=== PATIENT | female | born 1985 | race Caucasian/White ===

== ENCOUNTER → 2017-02-07 | Outpatient (CLI) | payer BC ==
[~2017-02-07] MED LIST: MTR600X PO; PRENTAB26 PO
[2017-02-07 18:33] LABS: URINE APPEARANCE CLEAR (CLEAR); URINE BILIRUBIN NEG (NEG); URINE COLOR YELLOW; URINE NITRITE NEG (NEG); URINE PH 5.5 (4.5-7.5); URINE SPECIFIC GRAVITY 1.013 (1.000-1.030); UROBILINOGEN NEG (NEG)
[2017-02-07 18:38] LABS: MANUAL MICROSCOPIC REQUIRED? NO; REVIEW REQ? NO
== END | disposition home or self-care (01) ==
LOC: C.LABSPEC 17:52
PROVIDERS: ATTEND Obstetrics & Gynecology
DX: O99.211 Obesity complicating pregnancy, first trimester (principal); Z3A.00 Weeks of gestation of pregnancy not specified

== ENCOUNTER → 2017-02-14 | Outpatient (CLI) | payer BC | END | disposition home or self-care (01) | LOC: C.PAPS 09:52 | PROVIDERS: ATTEND Obstetrics & Gynecology | DX: Z12.4 Encounter for screening for malignant neoplasm of cervix (principal) ==

== ENCOUNTER → 2017-02-14 | Outpatient (CLI) | payer BC ==
[2017-02-17 01:39] LABS: CHLAMYDIA TRACH RNA*** NOT DETECTED (NOT DETECTED); GC (NEIS GONORRHOEAE)RNA** NOT DETECTED (NOT DETECTED)
== END | disposition home or self-care (01) ==
LOC: C.LABSPEC 11:58
PROVIDERS: ATTEND Obstetrics & Gynecology
DX: O99.211 Obesity complicating pregnancy, first trimester (principal); Z3A.00 Weeks of gestation of pregnancy not specified

== ENCOUNTER → 2017-02-14 | Outpatient (CLI) | payer BC ==
[2017-02-14 14:50] LABS: BASO % 0.2 %; BASO ABS # 0.02 K/uL (0-0.2); COMPLETE YES; EOS % 0.5 %; HEMATOCRIT 41.5 % (37-47); IG% 0.2 %; LYMPH % 27.4 %; LYMPH ABS # 2.51 K/uL (1.2-3.4); MEAN CELL VOLUME 80.4 fL (80-100); MEAN CORPUSCULAR HEMOGLOBIN 26.6 pg (25-34); MEAN PLATELET VOLUME 11.6 fL (7.4-10.4); MONO % 5.1 %; NEUT % 66.6 %; PLATELET COUNT 288 K/uL (130-400); RED BLOOD COUNT 5.16 M/uL (4.2-5.4); WHITE BLOOD COUNT 9.17 K/uL (4.8-10.8)
== END | disposition home or self-care (01) ==
LOC: C.RAD1850 12:43
PROVIDERS: ATTEND Obstetrics & Gynecology
DX: O99.211 Obesity complicating pregnancy, first trimester (principal); Z3A.00 Weeks of gestation of pregnancy not specified; E66.9 Obesity, unspecified; Z12.4 Encounter for screening for malignant neoplasm of cervix

== ENCOUNTER → 2017-04-18 | Outpatient (CLI) | payer BC ==
[2017-04-18 13:14] LABS: GTGD 50 Grams
== END | disposition home or self-care (01) ==
LOC: C.LAB1850 11:15
PROVIDERS: ATTEND Obstetrics & Gynecology
DX: O99.212 Obesity complicating pregnancy, second trimester (principal); Z3A.00 Weeks of gestation of pregnancy not specified

== ENCOUNTER → 2017-06-21 | Outpatient (CLI) | payer BC ==
[2017-06-21 12:26] LABS: URINE APPEARANCE CLEAR (CLEAR); URINE BILIRUBIN NEG (NEG); URINE COLOR YELLOW; URINE NITRITE NEG (NEG); URINE PH 6.5 (4.5-7.5); URINE SPECIFIC GRAVITY 1.014 (1.000-1.030); UROBILINOGEN NEG (NEG)
[2017-06-21 12:29] LABS: MANUAL MICROSCOPIC REQUIRED? NO; REVIEW REQ? NO
== END | disposition home or self-care (01) ==
LOC: C.LAB1850 10:28
PROVIDERS: ATTEND Obstetrics & Gynecology
DX: O26.892 Other specified pregnancy related conditions, second trimester (principal)

== ENCOUNTER → 2017-07-03 | Outpatient (CLI) | payer BC ==
[2017-07-03 10:58] LABS: HEMATOCRIT 36.3 % (37-47)
[2017-07-03 11:14] LABS: GTGD 50 Grams
[2017-07-03 11:40] LABS: URINE APPEARANCE CLEAR (CLEAR); URINE BILIRUBIN NEG (NEG); URINE COLOR YELLOW; URINE EPITHELIAL CELL AUTO >30 /lpf (0-5); URINE NITRITE NEG (NEG); URINE PH 7.5 (4.5-7.5); URINE SPECIFIC GRAVITY 1.005 (1.000-1.030); UROBILINOGEN NEG (NEG)
[2017-07-03 11:43] LABS: MANUAL MICROSCOPIC REQUIRED? NO; REVIEW REQ? NO
== END | disposition home or self-care (01) ==
LOC: C.LAB1850 09:51
PROVIDERS: ATTEND Obstetrics & Gynecology
DX: Z34.83 Encounter for supervision of other normal pregnancy, third trimester (principal)

== ENCOUNTER 2017-08-23 14:05 | Emergency (ER) | payer OTHER ==
[~2017-08-23] VITALS: Ht 160 cm; Wt 126.5 kg
[2017-08-23 14:23] VITALS: TEMP 37.2; Ht 160 cm; Wt 126.5 kg
[2017-08-23 14:25] VITALS: O2SAT 97
--- NOTE | 2017-08-23 14:44 | DIAGNOSTIC IMAGING REPORT ---
CHEST ONE VIEW PORTABLE HISTORY: EVALUATE RESPIRATORY DISTRESS.DYSPNEA COMPARISON: None. FINDINGS: The heart is mildly enlarged. This could be accentuated by the low lung volumes. The lungs are clear. No pleural effusions. No pneumothorax. IMPRESSION: Mild enlargement of cardiac silhouette which may be accentuated by the low lung volumes. Otherwise, no acute process within the chest. Electronically signed by: Steven Stuart M.D. 08/23/2017 2:42 PM Dictated Date/Time: 08/23/2017 2:40 PM
[2017-08-23 14:49] LABS: URINE APPEARANCE CLEAR (CLEAR); URINE BILIRUBIN NEG (NEG); URINE COLOR YELLOW; URINE NITRITE NEG (NEG); URINE PH 7.5 (4.5-7.5); URINE SPECIFIC GRAVITY 1.013 (1.000-1.030); UROBILINOGEN NEG (NEG)
[2017-08-23 14:57] LABS: MANUAL MICROSCOPIC REQUIRED? NO; REVIEW REQ? NO
[2017-08-23 14:59] LABS: BASO % 0.1 %; BASO ABS # 0.01 K/uL (0-0.2); COMPLETE YES; EOS % 0.3 %; HEMATOCRIT 39.5 % (37-47); IG% 0.5 %; LYMPH % 20.6 %; LYMPH ABS # 1.78 K/uL (1.2-3.4); MEAN CELL VOLUME 79.3 fL (80-100); MEAN CORPUSCULAR HEMOGLOBIN 27.3 pg (25-34); MEAN CORPUSCULAR HGB CONC 34.4 g/dl (32-36); MEAN PLATELET VOLUME 10.7 fL (7.4-10.4); MONO % 6.1 %; NEUT % 72.4 %; PLATELET COUNT 250 K/uL (130-400); RED BLOOD COUNT 4.98 M/uL (4.2-5.4); WHITE BLOOD COUNT 8.66 K/uL (4.8-10.8)
[2017-08-23 15:14] LABS: INR 0.9 (0.9-1.1); PARTIAL THROMBOPLASTIN RATIO 1.1; PROTHROMBIN TIME (PATIENT) 9.5 SECONDS (9.0-12.0)
[2017-08-23 15:16] LABS: ALT/SGPT 15 U/L (12-78); AST/SGOT 10 U/L (15-37); BLOOD UREA NITROGEN 7 mg/dl (7-18); BUN/CREATININE RATIO 13.9 (10-20); CALCIUM 8.9 mg/dl (8.5-10.1); CARBON DIOXIDE 23 mmol/L (21-32); CHLORIDE 109 mmol/L (98-107); CREATININE 0.49 mg/dl (0.60-1.20); GLUCOSE 72 mg/dl (70-99); POTASSIUM 3.9 mmol/L (3.5-5.1); SODIUM 138 mmol/L (136-145)
[2017-08-23 15:21] LABS: ALB/GLOB RATIO 0.6 (0.9-2); ALKALINE PHOSPHATASE 137 U/L (45-117)
--- NOTE | 2017-08-23 15:30 | DIAGNOSTIC IMAGING REPORT ---
BILATERAL LOWER EXTREMITY VENOUS DOPPLER HISTORY: Acute atypical chest pain with . Concern for possible deep venous thrombosis CP, COMPARISON STUDY: Chest radiograph of same day. FINDINGS: There is normal compressibility, flow, and augmentation within the bilateral lower extremity deep venous systems. Cold Header reports that areas of slow venous flow are noted throughout the bilateral lower extremities, left greater than right. IMPRESSION: No sonographic evidence of deep venous thrombosis within the right or left lower extremity. Electronically signed by: David Munoz M.D. 08/23/2017 3:29 PM Dictated Date/Time: 08/23/2017 3:27 PM
--- NOTE | 2017-08-23 15:34 | EMERGENCY ROOM VISIT NOTE ---
History Report prepared by Aakash: Rene Pringle Under the Supervision of: Dr. Ismael Joy D.O. First contact with patient: 14:07 Chief Complaint: CHEST PAIN Stated Complaint: CHEST PAIN History of Present Illness The patient is a 32 year old female who presents to the Emergency Room with complaints of constant chest pain that began this morning. The patient states that she is 35 weeks and she slept on her left side last night. She notes that she woke up in the middle of the night with left arm pain that resolved when she woke up this morning. The patient reports that when she woke up this morning she had pinching pain in her chest which worsens with inspiration. She notes that she is having some slight shortness of breath. The patient denies abdominal pain, nausea, vomiting, leg swelling, rash, urinary symptoms, and leg pain. She denies any hematuria or vaginal bleeding and any tobacco/alcohol use. The patient was induced with her previous with a regular term baby. Of note, the patient has a surgical history significant for excision of a perirectal anal abscess. The patient took 1 extra-strength Tylenol with minimal improvement. She notes that she spoke to her PCP today who recommended she be seen in the ED. Source of History: patient Onset: earlier this morning Position: chest Quality: other (SOB) Timing: constant Modifying Factors (Worsening): breathing Associated Symptoms: + chest pain, + SOB, No nausea, No vomiting, No abdominal pain, No urinary symptoms Note: Pt denies lower extremity swelling. Review of Systems See HPI for pertinent positives & negatives. A total of 10 systems reviewed and were otherwise negative. Past Medical & Surgical Medical Problems: (1) Perirectal abscess Family History No pertinent family history stated. Social History Smoking Status: Never Smoker Housing Status: lives with family Occupation Status: employed Current/Historical Medications Scheduled Multivit/Min/Iron/Fol Ac/Pren ( Vitamin), 1 TAB PO DAILY Allergies Coded Allergies: No Known Allergies (Unverified , 08/07/15) Physical Exam Vital Signs Date Time Temp Pulse Resp B/P (MAP) Pulse Ox O2 Delivery O2 Flow Rate FiO2 08/23/17 20:45 97 08/23/17 20:14 96 18 108/73 98 Room Air 08/23/17 17:49 104 126/79 99 08/23/17 16:10 92 16 98 08/23/17 16:05 88 23 97 08/23/17 16:01 107/84 08/23/17 15:40 93 20 116/75 97 Room Air 08/23/17 15:40 116/75 08/23/17 14:35 95 18 97 08/23/17 14:31 127/82 08/23/17 14:25 97 Room Air 08/23/17 14:24 93 08/23/17 14:23 37.2 90 22 140/82 99 Room Air 08/23/17 14:22 140/82 08/23/17 14:21 99 Room Air Physical Exam GENERAL: Patient is awake, alert, anxious appearing, and tearful. EYES: The conjunctivae are clear. The pupils are round and reactive. EARS, NOSE, MOUTH AND THROAT: The nose is without any evidence of any deformity. Mucous membranes are moist tongue is midline NECK: The neck is nontender and supple. RESPIRATORY: Normal respiratory effort is noted there is no evidence of wheezing rhonchi or rales CARDIOVASCULAR: No rubs or gallops normal S1 normal S2; Tachycardia and regular rhythm noted there no definite murmurs noted through auscultation GASTROINTESTINAL: The abdomen is soft. Bowel sounds are present in all quadrants. Abdomen is gravid in appearance with fundal height well above the umbilicus. movement noted to palpation. MUSCULOSKELETAL/EXTREMITIES: There is no evidence of gross deformity full range of motion is noted in the hips and shoulders. Left sided chest pain was not reproducible but was improved with splinting the left anterior rib cage. SKIN: There is no obvious evidence of any rash. There are no petechiae, pallor or cyanosis noted. NEUROLOGIC: Patient is awake alert and oriented x3 strength is symmetric patellar reflexes are 2+ bilaterally Medical Decision & Procedures ER Provider Diagnostic Interpretation: Radiology results as stated below per my review and radiologist interpretation: CHEST ONE VIEW PORTABLE HISTORY: EVALUATE RESPIRATORY DISTRESS.DYSPNEA COMPARISON: None. FINDINGS: The heart is mildly enlarged. This could be accentuated by the low lung volumes. The lungs are clear. No pleural effusions. No pneumothorax. IMPRESSION: Mild enlargement of cardiac silhouette which may be accentuated by the low lung volumes. Otherwise, no acute process within the chest. Electronically signed by: Steven Stuart M.D. 08/23/2017 2:42 PM Dictated Date/Time: 08/23/2017 2:40 PM BILATERAL LOWER EXTREMITY VENOUS DOPPLER HISTORY: Acute atypical chest pain with . Concern for possible deep venous thrombosis CP, COMPARISON STUDY: Chest radiograph of same day. FINDINGS: There is normal compressibility, flow, and augmentation within the bilateral lower extremity deep venous systems. Decorating Machine Operator reports that areas of slow venous flow are noted throughout the bilateral lower extremities, left greater than right. IMPRESSION: No sonographic evidence of deep venous thrombosis within the right or left lower extremity. Electronically signed by: David Munoz M.D. 08/23/2017 3:29 PM Dictated Date/Time: 08/23/2017 3:27 PM (CHEST FOR PE) ANGIO WITH FINDINGS: General Education Instructor topogram: Unremarkable. Pulmonary vasculature: The study is suboptimal secondary to the timing of the contrast bolus and respiratory motion artifact. This limits evaluation of segmental and subsegmental pulmonary emboli. Allowing for this, no central filling defect to suggest pulmonary embolus. Main pulmonary artery is enlarged measuring 3.6 cm in transverse dimension. Vertebral arteries also appear enlarged relative to their adjacent bronchi. No flattening of the interventricular septum. No intracardiac intracardiac filling defect. No reflux of contrast into the hepatic veins. Remaining chest: On soft tissue windows, normal thyroid and thoracic inlet. No axillary, supraclavicular, hilar, or mediastinal lymphadenopathy. Normal aorta. Multichamber enlargement of the heart. No pericardial or pleural effusion. Distal esophagus contains debris. On lung windows, minimal dependent changes. No focal infiltrate or nodule. Airways patent. On bone windows, normal osseous structures. IMPRESSION: 1. No evidence of pulmonary embolus. No acute intrathoracic pathology. 2. Cardiomegaly. 3. Enlargement of the main pulmonary artery and distal pulmonary arteries concerning for pulmonary hypertension. Electronically signed by: Victor Hugo Marti M.D. 08/23/2017 5:07 PM Dictated Date/Time: 08/23/2017 5:02 PM Laboratory Results 08/23/17 14:46 Red Blood Count 4.98, Mean Corpuscular Volume 79.3, Mean Corpuscular Hemoglobin 27.3, Mean Corpuscular Hemoglobin Concent 34.4, Mean Platelet Volume 10.7, Neutrophils (%) (Auto) 72.4, Lymphocytes (%) (Auto) 20.6, Monocytes (%) (Auto) 6.1, Eosinophils (%) (Auto) 0.3, Basophils (%) (Auto) 0.1, Neutrophils # (Auto) 6.27, Lymphocytes # (Auto) 1.78, Monocytes # (Auto) 0.53, Eosinophils # (Auto) 0.03, Basophils # (Auto) 0.01 08/23/17 14:46 Test 08/23/17 14:30 08/23/17 14:46 Urine Color YELLOW Urine Appearance CLEAR (CLEAR) Urine pH 7.5 (4.5-7.5) Urine Specific [place] 1.013 (1.000-1.030) Urine Protein NEG (NEG) Urine Glucose (UA) NEG (NEG) Urine Ketones NEG (NEG) Urine Occult Blood NEG (NEG) Urine Nitrite NEG (NEG) Urine Bilirubin NEG (NEG) Urine Urobilinogen NEG (NEG) Urine Leukocyte Esterase NEG (NEG) White Blood Count 8.66 K/uL (4.8-10.8) Red Blood Count 4.98 M/uL (4.2-5.4) Hemoglobin 13.6 g/dL (12.0-16.0) Hematocrit 39.5 % (37-47) Mean Corpuscular Volume 79.3 fL (80-100) Mean Corpuscular Hemoglobin 27.3 pg (25-34) Mean Corpuscular Hemoglobin Concent 34.4 g/dl (32-36) Platelet Count 250 K/uL (130-400) Mean Platelet Volume 10.7 fL (7.4-10.4) Neutrophils (%) (Auto) 72.4 % Lymphocytes (%) (Auto) 20.6 % Monocytes (%) (Auto) 6.1 % Eosinophils (%) (Auto) 0.3 % Basophils (%) (Auto) 0.1 % Neutrophils # (Auto) 6.27 K/uL (1.4-6.5) Lymphocytes # (Auto) 1.78 K/uL (1.2-3.4) Monocytes # (Auto) 0.53 K/uL (0.11-0.59) Eosinophils # (Auto) 0.03 K/uL (0-0.5) Basophils # (Auto) 0.01 K/uL (0-0.2) RDW Standard Deviation 44.1 fL (36.4-46.3) RDW Coefficient of Variation 15.2 % (11.5-14.5) Immature Granulocyte % (Auto) 0.5 % Immature Granulocyte # (Auto) 0.04 K/uL (0.00-0.02) Prothrombin Time 9.5 SECONDS (9.0-12.0) Prothromb Time International Ratio 0.9 (0.9-1.1) Activated Partial Thromboplast Time 28.5 SECONDS (21.0-31.0) Partial Thromboplastin Ratio 1.1 D-Dimer 1230 ug/L FEU (0-500) Anion Gap 6.0 mmol/L (3-11) Est Creatinine Clear Calc Drug Dose 215.4 ml/min Estimated GFR () > 150.0 Estimated GFR (Non- 129.8 BUN/Creatinine Ratio 13.9 (10-20) Calcium Level 8.9 mg/dl (8.5-10.1) Total Bilirubin 0.2 mg/dl (0.2-1) Aspartate Amino Transf (AST/SGOT) 10 U/L (15-37) Alanine Aminotransferase (ALT/SGPT) 15 U/L (12-78) Alkaline Phosphatase 137 U/L (45-117) Troponin I < 0.015 ng/ml (0-0.045) Pro-B-Type Natriuretic Peptide 43 pg/ml (0-450) Total Protein 7.2 gm/dl (6.4-8.2) Albumin 2.6 gm/dl (3.4-5.0) Globulin 4.6 gm/dl (2.5-4.0) Albumin/Globulin Ratio 0.6 (0.9-2) Laboratory results per my review. Medications Administered Medications (Trade) Dose Ordered Sig/Maryam Route Start Time Stop Time Status Last Admin Dose Admin Acetaminophen (Tylenol Tab) 1,000 mg NOW STAT PO 08/23/17 20:20 08/23/17 20:21 DC 08/23/17 20:28 1,000 MG ECG Indication: chest pain Rate (beats per minute): 95 Rhythm: normal sinus Findings: RBBB, no acute ischemic change, no ectopy Comparison ECG Date: no prior available ED Course 1407: The patient was evaluated in room B10. A complete history and physical examination were performed. 1726: I spoke with Dr. Amanda COLE who recommended an echocardiogram. 1758: I spoke with Dr. Mckeon and he will read the echo. 1800: I spoke with the patient and updated them. 2020: Tylenol Tab 1000mg PO. Medical Decision Differential diagnosis: Etiologies such as cardiac ischemia, aortic dissection, pulmonary embolism, pneumonia, pneumothorax, musculoskeletal, infections, pericarditis, myocarditis , esophageal rupture, gastrointestinal, as well as others were entertained. Nursing notes reviewed. The patient is a 32-year-old female who presented to the emergency department for left-sided chest pain. The patient is currently in her third trimester . When she called her primary care physician she was instructed to go to the emergency department for the possibility of venous thromboembolic disease. The patient was not tachycardic or hypoxic. The pain appeared to be somewhat improved with splinting the chest however given that she was in her third trimester studies were undertaken to rule out pulmonary embolism. The patient's EKG did show signs of a right bundle branch block pattern. Dopplers of the lower extremities were negative for acute DVT. CT the chest was obtained which did not show any signs of venous thromboembolic disease but did show the possibility of pulmonary hypertension. I discussed the patient's laboratory and radiographic studies to that point with her as well as her covering RUBBER COMPOUNDER SUPERVISOR physician. She was very concerned about the patient's overall condition and requested that I discussed the case with the on-call otolaryngology teacher. The otolaryngology teacher recommended an echocardiogram which was obtained while she was in the emergency department. The echocardiogram report was reviewed with the patient. It did not show signs of pulmonary hypertension. It was essentially normal study. The patient was encouraged to rest and avoid any strenuous activity. She was also encouraged to continue using Tylenol stretcher for pain. I also encouraged her to follow-up with her primary RUBBER COMPOUNDER SUPERVISOR physician for further evaluation but return to the emergency department immediately if symptoms change worsen or the need arises. Medication Reconcilliation Current Medication List: was personally reviewed by me Blood Pressure Screening Patient's blood pressure: Elevated blood pressure Blood pressure disposition: Elevated BP felt to be situational Consults Time Called: 172 Consulting Physician: Dr. Amanda COLE Returned Call: [address] Amanda COLE who recommended an echocardiogram. Additional Consults: Time Called: 1758 Consulted Physician: Dr. Mckeon of Cardiology Returned Call: 1800 Additional Comments: I spoke with Dr. Mckeon and he will read the echo. Impression Primary Impression: Chest wall pain Additional Impression: Left sided chest pain Scribe Attestation The scribe's documentation has been prepared under my direction and personally reviewed by me in its entirety. I confirm that the note above accurately reflects all work, treatment, procedures, and medical decision making performed by me. Departure Information Referrals Alpa Salinas D.O. (PCP) Patient Instructions My [facility] Problem Qualifiers
[2017-08-23] MEDS ORDERED: OPTIRAY 320 IV PRN (16:30)
--- NOTE | 2017-08-23 17:08 | DIAGNOSTIC IMAGING REPORT ---
(CHEST FOR PE) ANGIO WITH CLINICAL HISTORY: 32 years-old Female presenting with ^sent by PCP for ro PE, left CP, 35 weeks . TECHNIQUE: Multidetector CT angiography of the chest was performed after administration of intravenous contrast. 3-D volumetric and/or maximum intensity projection (MIP) images were subsequently reconstructed for review. IV contrast: 90 mL of Optiray 320. A dose lowering technique was used consistent with the principles of ALARA (as low as reasonably achievable). COMPARISON: Chest x-ray performed earlier the same day. CT DOSE (mGy.cm): The estimated cumulative dose is 612.09 mGy.cm. FINDINGS: Newspaper Or Periodical Editor topogram: Unremarkable. Pulmonary vasculature: The study is suboptimal secondary to the timing of the contrast bolus and respiratory motion artifact. This limits evaluation of segmental and subsegmental pulmonary emboli. Allowing for this, no central filling defect to suggest pulmonary embolus. Main pulmonary artery is enlarged measuring 3.6 cm in transverse dimension. Vertebral arteries also appear enlarged relative to their adjacent bronchi. No flattening of the interventricular septum. No intracardiac intracardiac filling defect. No reflux of contrast into the hepatic veins. Remaining chest: On soft tissue windows, normal thyroid and thoracic inlet. No axillary, supraclavicular, hilar, or mediastinal lymphadenopathy. Normal aorta. Multichamber enlargement of the heart. No pericardial or pleural effusion. Distal esophagus contains debris. On lung windows, minimal dependent changes. No focal infiltrate or nodule. Airways patent. On bone windows, normal osseous structures. IMPRESSION: 1. No evidence of pulmonary embolus. No acute intrathoracic pathology. 2. Cardiomegaly. 3. Enlargement of the main pulmonary artery and distal pulmonary arteries concerning for pulmonary hypertension. Electronically signed by: Victor Hugo Marti M.D. 08/23/2017 5:07 PM Dictated Date/Time: 08/23/2017 5:02 PM
[2017-08-23 20:14] VITALS: BP 108/73; O2SAT 98
[2017-08-23] MEDS ORDERED: ACETAMINOPHEN 500 MG TAB PO STA (20:20)
[2017-08-23 20:45] VITALS: PULSE 97
--- NOTE | 2017-08-23 20:52 | ECHOCARDIOGRAM REPORT ---
*NOTICE TO RECEIVING [employer]EN [employer] AGENCY This information is strictly Confidential and protected under [place] law. [place] law prohibits you from making any further disclosure of this information unless further disclosure is expressly permitted by the written consent of the person to whom it pertains or is authorized by law. A general authorization for the release of medical or other information is not sufficient for this purpose. Hospital accepts no responsibility if the information is made available to any other person, INCLUDING THE PATIENT. Interpretation Summary * Name: GRACIELA LOPEZ Study Date: 08/23/2017 07:13 PM BP: 126/79 mmHg * Patient Location: .EDB HR: 90 * : 1985 (M/d/yyyy) Gender: Female Height: 63 in * Age: 32 yrs Ethnicity: CA Weight: 278 lb * Ordering Physician: Ismael Joy * Referring Physician: Self, Referred * Performed By: Shirin Caldera RCS * * Reason For Study: ABNORMAL EKG / CHEST PAIN * BSA: 2.2 m2 * This was essentially a normal study. * -- Conclusions -- * There is no evidence of pulmonary hypertension. The PA systolic pressure is less than 36 mmHg. * This was essentially a normal study. Procedure Details * A complete two-dimensional transthoracic echocardiogram was performed (2D, M-mode, Doppler and color flow Doppler). Left Ventricle * The left ventricle is normal in size. * There is normal left ventricular wall thickness. * Left ventricular systolic function is normal. * Ejection Fraction = 60-65%. * The left ventricular wall motion is normal. Right Ventricle * The right ventricle is normal size. * The right ventricular systolic function is normal. Atria * The left atrial size is normal. * Right atrial size is normal. * There is no evidence of atrial septal defect, but resolution does not allow assessment for a patent foramen ovale. Mitral Valve * The mitral valve is normal in structure and function. Tricuspid Valve * The tricuspid valve is normal in structure and function. Aortic Valve * The aortic valve is normal in structure and function. Pulmonic Valve * The pulmonic valve is not well seen, but is grossly normal. * There is no significant pulmonary regurgitation. Great Vessels * The aortic root and proximal ascending aorta are normal sized. Pericardium/Pleural * There is no pericardial effusion. Great Vessels * There is no evidence of pulmonary hypertension. The PA systolic pressure is less than 36 mmHg. MMode 2D Measurements and Calculations IVSd 1.1 cm IVSs 1.6 cm LVIDd 4.2 cm LVIDs 2.4 cm LVPWd 1.1 cm LVPWs 1.4 cm IVS/LVPW 1.0 FS 42.1 % EDV(Teich) 76.7 ml ESV(Teich) 20.3 ml EF(Teich) 73.6 % EDV(cubed) 71.9 ml ESV(cubed) 13.9 ml EF(cubed) 80.6 % % IVS thick 45.4 % % LVPW thick 27.1 % LV mass(C)d 153.7 grams LV mass(C)dI 69.1 grams/m\S\2 LV mass(C)s 119.5 grams LV mass(C)sI 53.7 grams/m\S\2 SV(Teich) 56.4 ml SI(Teich) 25.4 ml/m\S\2 SV(cubed) 58.0 ml SI(cubed) 26.1 ml/m\S\2 Ao root diam 2.3 cm Ao root area 4.0 cm\S\2 LA dimension 4.2 cm LA/Ao 1.9 LVOT diam 1.8 cm LVOT area 2.6 cm\S\2 LVAd ap4 38.2 cm\S\2 LVLd ap4 8.4 cm EDV(MOD-sp4) 138.5 ml EDV(sp4-el) 146.9 ml LVAs ap4 24.0 cm\S\2 LVLs ap4 7.0 cm ESV(MOD-sp4) 67.4 ml ESV(sp4-el) 69.8 ml EF(MOD-sp4) 51.4 % EF(sp4-el) 52.5 % LVAd ap2 43.9 cm\S\2 LVLd ap2 9.1 cm EDV(MOD-sp2) 171.1 ml EDV(sp2-el) 179.5 ml LVAs ap2 28.8 cm\S\2 LVLs ap2 7.7 cm ESV(MOD-sp2) 87.1 ml ESV(sp2-el) 91.4 ml EF(MOD-sp2) 49.1 % EF(sp2-el) 49.1 % LVLd %diff 7.4 % EDV(MOD-bp) 160.9 ml LVLs %diff 9.2 % ESV(MOD-bp) 79.9 ml EF(MOD-bp) 50.3 % SV(MOD-sp4) 71.1 ml SI(MOD-sp4) 32.0 ml/m\S\2 SV(MOD-sp2) 84.0 ml SI(MOD-sp2) 37.8 ml/m\S\2 SV(MOD-bp) 80.9 ml SI(MOD-bp) 36.4 ml/m\S\2 SV(sp4-el) 77.2 ml SI(sp4-el) 34.7 ml/m\S\2 SV(sp2-el) 88.1 ml SI(sp2-el) 39.6 ml/m\S\2 Doppler Measurements and Calculations MV E max lindy 112.7 cm/sec MV A max lindy 84.1 cm/sec MV E/A 1.3 MV P1/2t max lindy 124.2 cm/sec MV P1/2t 61.9 msec MVA(P1/2t) 3.6 cm\S\2 MV dec slope 588.1 cm/sec\S\2 MV dec time 0.18 sec Ao V2 max 155.4 cm/sec Ao max PG 9.7 mmHg Ao max PG (full) 3.4 mmHg YOLANDA(V,A) 2.1 cm\S\2 YOLANDA(V,D) 2.1 cm\S\2 LV V1 max PG 6.2 mmHg LV V1 max 124.9 cm/sec PA V2 max 119.1 cm/sec PA max PG 5.7 mmHg TR max lindy 231.1 cm/sec
== END 2017-08-23 21:56 | disposition home or self-care (01) ==
LOC: C.EDB 14:06
DX: O26.893 Other specified pregnancy related conditions, third trimester (principal); R07.89 Other chest pain; Z3A.35 35 weeks gestation of pregnancy

== ENCOUNTER → 2017-08-29 | Outpatient (CLI) | payer OTHER ==
[~2017-08-29] MED LIST changes: -MTR600X PO
== END | disposition home or self-care (01) ==
LOC: C.LABSPEC 17:16
PROVIDERS: ATTEND Obstetrics & Gynecology
DX: Z34.83 Encounter for supervision of other normal pregnancy, third trimester (principal); Z3A.00 Weeks of gestation of pregnancy not specified

== ENCOUNTER 2017-10-02 03:43 | Inpatient (IN) | payer OTHER ==
[~2017-10-02] VITALS: Ht 160 cm; Wt 130.9 kg
[2017-10-02] MEDS ORDERED: LACTATED RINGER'S 1000ML 1,000 ML IV PRN (04:30)
[2017-10-02] MEDS ORDERED: LACTATED RINGER'S 1000ML 1,000 ML IV SCH (04:30)
[2017-10-02 04:35] VITALS: Ht 160 cm; Wt 130.9 kg
[2017-10-02 05:00] LABS: HEMOGLOBIN 12.8 g/dL (12.0-16.0); MEAN CELL VOLUME 79.3 fL (80-100); MEAN CORPUSCULAR HGB CONC 32.8 g/dl (32-36); MEAN PLATELET VOLUME 11.6 fL (7.4-10.4); PLATELET COUNT 223 K/uL (130-400); RED CELL DISTRIBUTION WIDTH CV 15.6 % (11.5-14.5); RED CELL DISTRIBUTION WIDTH SD 45.3 fL (36.4-46.3); WHITE BLOOD COUNT 8.48 K/uL (4.8-10.8)
[2017-10-02] MEDS ORDERED: LACTATED RINGER'S 1000ML 500 ML IV PRN ×2 (09:02→15:25)
[2017-10-02] MEDS ORDERED: OXYTOCIN 30 UNITS/500ML NSS IV PRN ×2 (09:15→17:45)
--- NOTE | 2017-10-02 09:34 | Medical Student: [facility] ---
Med Student History & Physical Date of Service Oct 02, 2017. Chief Complaint LABOR History of Present Illness Source: patient, spouse, clinic records, hospital records Patsy is a 32YOF PROMISE of 09/24/2017 by LMP, 41-1 weeks GA, who presents to L&D with ruptured membranes. She was scheduled to be induced later this week. Patsy's membrane ruptured this morning at 0245. Fluid was clear. has been uncomplicated other than maternal obesity. The patient is currently not feeling contractions. She has been walking around the L&D unit without progression of contractions. O+, RI, GBS neg, HBV neg, HIV neg, VDRL/RPR nonreactive, C/G negative, 1 hour glucose 112mg/dL H&H 13.7, 41.5% OB History First delivered via at 40 wks GA after induction due to maternal obesity. DIRECTOR SUMMER SESSIONS History Menarche at age 14, LMP of 12/18/2016, last pap smear was 02/14/2017 and was normal. She has no history of abnormal pap smears. Past Medical History Obesity Past Surgical History Perirectal abscess I&D Social History Smoking Status: Never Smoker Smokeless Tobacco Use: No Alcohol Use: none Drug Use: none Marital Status: Housing status: lives with significant other Occupational Status: employed ([employer]) Allergies Coded Allergies: No Known Allergies (Unverified , 10/02/17) Home Medications Multivit/Min/Iron/Fol Ac/Pren ( Vitamin), 1 TAB PO DAILY Review of Systems Constitutional: No fever, No chills Respiratory: No cough, No wheezing, No shortness of breath Cardiovascular: No chest pain Abdomen: No pain, No diarrhea Genitourinary - Female: No dysuria, No urinary urgency, No urinary incontinence , No urinary retention Psychiatric: No depression symptoms Physical Exam General Appearance: WD/WN, no apparent distress Eyes: normal inspection ENT: normal ENT inspection Respiratory/Chest: chest non-tender, lungs clear, normal breath sounds, no respiratory distress, no accessory muscle use Cardiovascular: regular rate, rhythm, no gallop, no JVD, no murmur Abdomen / GI: normal bowel sounds, non tender, soft, + pertinent finding ( Gravid abdomen. heart tones present. Estimated weight of 8 lbs. Fetus in vertex position. ) Fundal Height: At full term size. Genitourinary - Female: external genitalia normal, + pertinent finding ( Cervical exam performed by Dr. Epps found cervix to be 4cm dilated, 75% effaced, and -1 station. ) Back: normal inspection, no CVA tenderness Extremities: no calf tenderness, normal range of motion Neurologic/Psych: supervisor hot strip mill II-XII nml as tested, no motor/sensory deficits, alert, normal mood/affect, oriented x 3 Skin: normal color Monitoring External Monitor: heart rate baseline of 140, moderate variability, accels present with no decels, category 1 tracing. Tocodynamometer: No regular contractions. Laboratory Results 10/02/17 04:40 Test 10/02/17 04:40 Red Blood Count 4.92 M/uL (4.2-5.4) Mean Corpuscular Volume 79.3 fL (80-100) Mean Corpuscular Hemoglobin 26.0 pg (25-34) Mean Corpuscular Hemoglobin Concent 32.8 g/dl (32-36) RDW Standard Deviation 45.3 fL (36.4-46.3) RDW Coefficient of Variation 15.6 % (11.5-14.5) Mean Platelet Volume 11.6 fL (7.4-10.4) Assessment and Plan Assessment: 32YOF at 41-1 weeks GA with ruptured membranes for now 7 hours. tracing category 1. Plan: Admit to L&D. Given patient has had 7 hours since membranes ruptured and has not developed a regular contraction pattern, we will begin pitocin. Will increase by 2 every 30 mins as needed to develop a good contraction pattern. Patient has requested epidural and will order this to be placed once we start seeing contractions. Patient is NPO except for ice chips. Will continue to monitor with EFM and toco.
[2017-10-02] MEDS ORDERED: BUPIVACAINE 0.25% 30 ML VIAL ONE (11:54)
[2017-10-02] MEDS ORDERED: EpHEDrine SULFATE INJ 50 MG/ML AMP ONE (11:54)
[2017-10-02] MEDS ORDERED: FENTANYL CITRATE INJ 50 MCG/1 ML 2 ML VIAL ONE (11:55)
[2017-10-02] MEDS ORDERED: FENTANYL 2MCG/ML ROPIV 1.25MG/ML 100ML BAG EPI ONE (11:56)
[2017-10-02] MEDS ORDERED: NALOXONE HCL INJ 1 MG in SODIUM CHLORIDE 0.9% 1000ML 1,000 ML IV PRN (15:25)
[2017-10-02] MEDS ORDERED: NALBUPHINE HCL INJ 10 MG/ML AMP IV PRN (15:30)
[2017-10-02] MEDS ORDERED: ONDANSETRON INJ 2 MG/ML 2 ML VIAL IV PRN (15:30)
[2017-10-02] MEDS ORDERED: FENTANYL 2MCG/ML ROPIV 1.25MG/ML 100ML BAG EPI PRN (15:30)
[2017-10-02] MEDS ORDERED: PROMETHAZINE HCL INJ 6.25 MG in SODIUM CHLORIDE 0.9% 50ML 50 ML IV PRN (15:30)
[2017-10-02] MEDS ORDERED: DiphenhydrAMINE HCL 50 MG/ML VIAL IV PRN (15:30)
[2017-10-02] MEDS ORDERED: EpHEDrine SULFATE INJ 50 MG/ML AMP IV PRN (15:30)
[2017-10-02] MEDS ORDERED: NALOXONE HCL INJ 0.4 MG/1 ML VIAL/CARP IV PRN (15:30)
[2017-10-02] MEDS ORDERED: OXYTOCIN INJ 20 UNITS in LACTATED RINGER'S 1000ML 1,000 ML IV SCH (17:33)
--- NOTE | 2017-10-02 17:41 | Vaginal Delivery Summary ---
Vaginal Delivery Summary The patient dilated to complete and pushed to deliver a viable male Apgars 8 and 9 via over intact perineum. Mouth and nose bulb suctioned at the perineum. Loose nuchal cord 1 reduced. Anterior shoulder and body delivered with ease. vigorous and crying at . Cord clamped at 30 seconds of life and infant to maternal abdomen. Cord then doubly clamped and cut. Cord blood obtained. Placenta delivered spontaneously and intact 3 vessel cord. Hemostasis achieved with dilute Pitocin and uterine massage. Cervix and sulci intact. EBL 300 cc's. Mother and baby stable in recovery.
[2017-10-02] MEDS ORDERED: LANOLIN OINT EXT PRN (17:45)
[2017-10-02] MEDS ORDERED: SUPERCREAM 0.870 % 15GM JAR EXT PRN (17:45)
[2017-10-02] MEDS ORDERED: HYDROCORTISONE ACETATE 25 MG SUPP PR PRN (17:45)
[2017-10-02] MEDS ORDERED: OXYCODONE/ACETAMINOPHEN 5-325 TAB PO PRN (17:45)
[2017-10-02] MEDS ORDERED: ACETAMINOPHEN 325 MG TAB PO PRN (17:45)
[2017-10-02] MEDS ORDERED: BENZOCAINE 20% AER SPR 82.5 GM CAN EXT PRN (17:45)
[2017-10-02] MEDS ORDERED: DIPHTHERIA/TETANUS/PERTUSSIS 0.5 ML SYR/VIAL IM. ONE (17:45)
[2017-10-02] MEDS: DOCUSATE SODIUM 100 MG CAP PO SCH (20:25)
[2017-10-02 20:30] VITALS: BP 110/64; PULSE 105; TEMP 36.9
--- NOTE | 2017-10-02 21:24 | Anesthesiology Progress Note ---
Anesthesia Post Op Note Date & Time Oct 02, 2017 at 21:24 Vital Signs Pain Intensity: 10.0 Vital Signs Past 12 Hours Date Time Temp Pulse Resp B/P (MAP) Pulse Ox O2 Delivery O2 Flow Rate FiO2 10/02/17 20:30 36.9 105 18 110/64 (79) Room Air Notes Mental Status: alert / awake / arousable, participated in evaluation Pt Amnestic to Procedure: Yes Nausea / Vomiting: adequately controlled Pain: adequately controlled Airway Patency, RR, SpO2: stable & adequate BP & HR: stable & adequate Hydration State: stable & adequate Anesthetic Complications: no major complications apparent
[2017-10-02 23:25] VITALS: BP 107/68; PULSE 97; TEMP 36.8
[2017-10-02] MEDS: IBUPROFEN 600 MG TAB PO PRN (23:45)
[2017-10-03 03:00] VITALS: BP 95/63; PULSE 80; TEMP 36.6
--- NOTE | 2017-10-03 06:30 | Progress Note ---
Subjective Oct 03, 2017. Subjective conversation w/ patient (Pt seen and examined at bedside. Reports no acute overnight events), physical exam Ambulation: limited ambulation (has not been up and walking around as yet) Voiding: no voiding problems Diet Tolerance: Regular Diet Lochia: Moderate Feeding Type: Breast Feeding Pain: Burning on urination when urine makes contact w/superfical perineal lacs Review of Systems Constitutional: No fever, No chills Respiratory: No cough, No shortness of breath Cardiac: No chest pain, No edema, No palpitations Breast: No breast pain Abdomen: No pain, No nausea, No vomiting Female : No dysuria Objective Vital Signs Date Time Temp Pulse Resp B/P (MAP) Pulse Ox O2 Delivery O2 Flow Rate FiO2 10/03/17 03:00 36.6 80 18 95/63 (74) Room Air 10/02/17 23:25 36.8 97 18 107/68 (81) Room Air 10/02/17 23:25 Room Air 10/02/17 20:30 36.9 105 18 110/64 (79) Room Air Physical Exam General Appearance: WELL-APPEARING, WD/WN, NO APPARENT DISTRESS Respiratory/Chest: chest non-tender, lungs clear, normal breath sounds, no respiratory distress, no accessory muscle use Cardiovascular: regular rate, rhythm, no edema, no gallop, no murmur Abdomen: normal bowel sounds, non tender, soft, no organomegaly, no pulsatile mass Fundus: Firm, Non-Tender, Relation to Umbilicus (at Umbilicus) Extremities: non-tender, normal inspection, no pedal edema, no calf tenderness Medications Current Inpatient Medications Medications (Trade) Dose Ordered Sig/Maryam Route Start Time Stop Time Status Last Admin Dose Admin Lactated Ringer's 1,000 ml @ 125 mls/hr Q8H IV 10/02/17 04:30 10/04/17 04:29 10/02/17 09:20 125 MLS/HR Lactated Ringer's 1,000 ml @ 999 mls/hr Q1H1M PRN IV 10/02/17 04:30 11/01/17 04:29 10/02/17 12:32 999 MLS/HR Oxytocin (Pitocin IV) 30 units UD PRN IV 10/02/17 09:15 11/01/17 09:14 10/02/17 09:20 30 UNITS Lactated Ringer's 500 ml @ 999 mls/hr Q31M PRN IV 10/02/17 09:02 11/01/17 09:01 Oxytocin (Pitocin IV) 30 units UD PRN IV 10/02/17 17:45 11/01/17 17:44 Benzocaine (Dermoplast Aero Spr) 1 appln PRN PRN EXT 10/02/17 17:45 11/01/17 17:44 10/02/17 20:24 1 APPLN Cocaine HCl (Supercream 0.870% Cr) BID PRN EXT 10/02/17 17:45 10/16/17 17:44 Hydrocortisone Acetate (Anusol Hc Supp) 25 mg BID PRN VA 10/02/17 17:45 11/01/17 17:44 Lanolin (Lanolin Oint) PRN PRN EXT 10/02/17 17:45 11/01/17 17:44 Ibuprofen (Motrin Tab) 600 mg Q4H PRN PO 10/02/17 17:45 11/01/17 17:44 10/02/17 23:45 600 MG Acetaminophen (Tylenol Tab) 650 mg Q6H PRN PO 10/02/17 17:45 11/01/17 17:44 Oxycodone/ Acetaminophen (Percocet 5-325mg Tab) 1 tab Q4H PRN PO 10/02/17 17:45 10/16/17 17:44 Docusate Sodium (coLACE CAP) 100 mg BID PO 10/02/17 20:00 11/01/17 19:59 10/02/17 20:25 100 MG Oxytocin 20 units/ Lactated Ringer's 1,002 ml @ 125 mls/hr Q8H1M IV 10/02/17 17:33 10/03/17 09:34 10/02/17 18:43 125 MLS/HR Assessment and Plan Problem List Medical Problems: (1) Chest wall pain Status: Acute (2) Left sided chest pain Status: Acute Post- Day#: 1 Continue Routine Care: A&P: s/p day 1 - vital signs reviewed and wnl (Tmax at 36.8) - Blood Type O+, Rubella immune, GBS - - Patient is doing well clinically - Encourage ambulation, monitor and control pain with ibuprofen prn, continue regular diet, monitor lochia and continue to encourage Dr. Guido PGY 1 Resident Physician Supervision Note: I was present with Dr. Guido during the history and exam. I discussed the case with the resident and agree with the findings and plan as documented in the note. Any exceptions or clarifications are listed here: doing well. ambulating, voiding, eating. bleeding decreasing, breast feeding. routine care. Documented By: Vee Mullins Resident Tracking Resident Involvement: Resident Care Provided Care Provided: OB Delivery
[2017-10-03 07:50] VITALS: BP 98/61; PULSE 74; TEMP 36.5
[2017-10-03] MEDS: DOCUSATE SODIUM 100 MG CAP PO SCH ×2 (08:07→20:11)
[2017-10-03 12:30] VITALS: BP 109/75; PULSE 83; TEMP 36.6
[2017-10-03 15:50] VITALS: BP 116/77; PULSE 83; TEMP 36.5
[2017-10-03] MEDS: IBUPROFEN 600 MG TAB PO PRN ×2 (15:54→20:15)
[2017-10-03 23:30] VITALS: BP 100/58; PULSE 93; TEMP 36.6
--- NOTE | 2017-10-04 06:29 | Progress Note ---
Subjective Oct 04, 2017. Subjective conversation w/ patient (Patient was seen and examined at bedside. No concerns reported.) Ambulation: ambulating normally Voiding: no voiding problems Passing Gas: Yes Diet Tolerance: Regular Diet Lochia: Moderate (decreased from yesterday. Not fully filling a pad anymore.) Feeding Type: Breast Feeding Comment: She reports right leg numbness from her knee to her foot that is improved on standing and walking around. No leg pain. Review of Systems Constitutional: No fever, No chills, No sweats Respiratory: No cough, No shortness of breath Cardiac: No chest pain Abdomen: No pain, No nausea, No vomiting Female : No dysuria Objective Vital Signs Date Time Temp Pulse Resp B/P (MAP) Pulse Ox O2 Delivery O2 Flow Rate FiO2 10/03/17 23:30 36.6 93 18 100/58 (72) 10/03/17 23:30 Room Air 10/03/17 15:50 36.5 83 20 116/77 (90) Room Air 10/03/17 15:50 Room Air 10/03/17 12:30 36.6 83 20 109/75 (86) Room Air 10/03/17 07:50 36.5 74 20 98/61 (73) Room Air 10/03/17 07:50 Room Air Physical Exam General Appearance: WELL-APPEARING, WD/WN, NO APPARENT DISTRESS Respiratory/Chest: chest non-tender, lungs clear, normal breath sounds, no respiratory distress, no accessory muscle use Cardiovascular: regular rate, rhythm, no edema, no gallop, no murmur Abdomen: normal bowel sounds, non tender, soft, no organomegaly, no pulsatile mass Fundus: Firm, Non-Tender, Relation to Umbilicus (2cm below umbilicus) Extremities: normal range of motion, non-tender, normal inspection, no pedal edema, no calf tenderness, + pertinent finding (Mild tenderness to palpation of back. No hematoma, swelling or erythema noted over epidural site.) Medications Current Inpatient Medications Medications (Trade) Dose Ordered Sig/Maryam Route Start Time Stop Time Status Last Admin Dose Admin Lactated Ringer's 1,000 ml @ 999 mls/hr Q1H1M PRN IV 10/02/17 04:30 11/01/17 04:29 10/02/17 12:32 999 MLS/HR Oxytocin (Pitocin IV) 30 units UD PRN IV 10/02/17 09:15 11/01/17 09:14 10/02/17 09:20 30 UNITS Lactated Ringer's 500 ml @ 999 mls/hr Q31M PRN IV 10/02/17 09:02 11/01/17 09:01 Oxytocin (Pitocin IV) 30 units UD PRN IV 10/02/17 17:45 11/01/17 17:44 Benzocaine (Dermoplast Aero Spr) 1 appln PRN PRN EXT 10/02/17 17:45 11/01/17 17:44 10/02/17 20:24 1 APPLN Cocaine HCl (Supercream 0.870% Cr) BID PRN EXT 10/02/17 17:45 10/16/17 17:44 Hydrocortisone Acetate (Anusol Hc Supp) 25 mg BID PRN SD 10/02/17 17:45 11/01/17 17:44 Lanolin (Lanolin Oint) PRN PRN EXT 10/02/17 17:45 11/01/17 17:44 Ibuprofen (Motrin Tab) 600 mg Q4H PRN PO 10/02/17 17:45 11/01/17 17:44 10/03/17 20:15 600 MG Acetaminophen (Tylenol Tab) 650 mg Q6H PRN PO 10/02/17 17:45 11/01/17 17:44 Oxycodone/ Acetaminophen (Percocet 5-325mg Tab) 1 tab Q4H PRN PO 10/02/17 17:45 10/16/17 17:44 Docusate Sodium (coLACE CAP) 100 mg BID PO 10/02/17 20:00 11/01/17 19:59 10/03/17 20:11 100 MG Assessment and Plan Problem List Medical Problems: (1) Chest wall pain Status: Acute (2) Left sided chest pain Status: Acute Post- Day#: 2 Continue Routine Care: A&P: s/p day 2 - encourage ambulation & - analgesia prn - monitor lochia - right leg numbness likely due to hyperflexion of knee during labour. Will continue to monitor. - vitals reviewed and wnl - will review discharge instructions as she is ready for d/c later today Arin Guido, PGY1 Resident Physician Supervision Note: I was present with Dr. Guido during the history and exam. I discussed the case with the resident and agree with the findings and plan as documented in the note. Any exceptions or clarifications are listed here: Documented By: Rika Patel Resident Tracking Resident Involvement: Resident Care Provided Care Provided: OB Delivery
--- NOTE | 2017-10-04 07:46 | Discharge Instructions ---
Discharge Instructions Date of Service Oct 04, 2017. Admission Reason for Admission: LABOR Discharge Discharge Diagnosis / Problem: Vaginal Delivery Discharge Goals Goal(s): Routine recovery after delivery Medications Continue Dispensed Medications: supercream, dermaplast, tucks, lansinoh Activity Recommendations Activity Limitations: per Instructions/Follow-up section . Instructions / Follow-Up Instructions / Follow-Up ACTIVITY RECOMMENDATIONS: * Gradual return to full activity over the next 2-3 weeks. * No lifting - nothing heavier than baby over the next 2-3 weeks. * Do not engage in vigorous exercise, sexual activity or sports until cleared by your physician. * Do not drive or operate any motorized equipment until cleared by your physician. * You may shower/bathe daily. MEDICATIONS: For discomfort or pain, you may use Acetaminophen (Tylenol), Ibuprofen (Advil), or Naproxen (Aleve) following the package directions. For constipation you may use Colace following the package directions. BREAST CARE: If you are not breast feeding: * Wear a supportive bra 24 hours a day for one to two weeks. * Avoid stimulating your breasts and nipples as much as possible during the first few weeks after delivery. * When taking a shower, have the warm water hit your back, not breasts. * When your breasts feel full, apply ice packs. Usually three to four times a day helps ease the discomfort. * Take a mild pain medication (Tylenol / Motrin) when you are uncomfortable. If breast feeding: * Use breast milk to lubricate nipples. Lansinoh cream may be used for sore nipples. You do not need to remove cream prior to breast feeding. If using a different brand of cream, check the label for directions regarding removal of cream prior to nursing. * Wear a supportive bra. * If having problems with breasts or breast feeding, call a business system consultant or your health care provider. EPISIOTOMY CARE: After delivery, if you have an episiotomy (stitches), the following steps will ease discomfort and aid healing. * For the first 24 hours after delivery, place ice packs next to your episiotomy to help reduce swelling. * After the first 24 hour-period, sitz baths, either portable or in the tub, are suggested. A shower with a shower arm sprayed over the episiotomy may be comforting. * Keisha care should be done after each voiding and bowel movement. Squirt warm water from a plastic bottle over the perineum (region of the body between the anus and urinary opening) and pat dry. * Use Dermoplast to ease discomfort. Shake container. [place] directly over the episiotomy. Place a Tucks on a clean sanitary pad next to your episiotomy. SPECIAL CARE INSTRUCTIONS: When you are discharged from the hospital, it is important for you to follow the instructions listed below: * During the first week at home, you should be able to care for yourself and your baby. In addition, the usual light household activities are encouraged. * Limit your activities to the way you feel. Do not try to clean the house or move furniture. Be sensible. * If you actively engage in sports and have done so up until the time of your delivery, you may resume these activities as soon as you feel able. This may take up to one month or even longer. Use good judgment. * Continue to take your vitamins for at least six weeks after the of your baby. * Your diet need not be limited unless you were on a special diet before your delivery. Breast-feeding mothers need around 2500 calories per day and at least 64-80 ounces of fluid per day (8 to 10 glasses). * You should eat foods from the four major food groups. Crash diets or fad diets are to be avoided. Eating lean meats, fresh fruits and vegetables, low-fat dairy products, high fiber foods and a regular exercise program, will help you get back to your pre- weight without putting your health at risk. * Constipation is sometimes a problem after delivery. Take a mild laxative as needed. If breast feeding, Milk of Magnesia is acceptable to use. You may use a suppository or Fleets enema if no episiotomy. * A daily shower or tub bath is suggested. Be sure to thoroughly and gently dry the perineum. * A bloody vaginal discharge will usually continue until around four weeks post . A small amount of bleeding may continue for as long as six weeks. Vaginal discharge changes from the bright red bleeding after delivery to pink then brownish and finally yellowish-pink before becoming white and disappearing. * Bleeding may increase with activity. Your first period may come in 4-8 weeks. If you are breast feeding, your period may be delayed even longer. * [place] (sex) can begin whenever both you and your partner feel comfortable and do not have any form of genital infection. It is recommended that you wait at least six weeks for internal and external healing to occur. If you have questions, please talk to your health care practitioner. A condom should be used to prevent infection and . * Foreplay, gentle intercourse and lubrication is very important the first several times to prevent pain. A water-based lubricant such as K-Y jelly or Astroglide may be used. * If you have RH negative blood and your baby is RH positive, you will receive RHOGAM by injection prior to discharge. The nurse will give you a card to keep with you that has the date and place that you received RHOGAM after delivery. * During your care, you had a Rubella screen done to check for the presence of rubella antibodies in your blood. If your test was negative, you will receive a Rubella vaccine prior to discharge. This vaccine may cause a fever, soreness at the injection site and flu-like symptoms. If these symptoms persist, notify your health care practitioner. is not advised for one month after a Rubella vaccine. * Verbalizes understanding of car seat law as reviewed with patient nursing. * Car Seat hand-out given and reviewed with patient by nursing. * Shaken baby information reviewed with patient by nursing. Call you doctor if: * Heavy bleeding (saturating several pads an hour) or passing clots the size of your fist. * A fever >101 degrees F (38.3 degrees C) on two occasions four hours apart and /or chills. * Unusual pain in the pelvic or vaginal areas. * "Baby Blues" lasting longer than two weeks. If you have any questions or concerns, call your health care practitioner at . FOLLOW UP VISIT: * Please call the office at to schedule a 6 week examination. It is important you keep this appointment. It is important for you to make arrangements for either yearly or twice yearly check-ups thereafter. Current Hospital Diet Patient's current hospital diet: Regular OB Diet Discharge Diet Recommended Diet: Regular Diet Pending Studies Studies pending at discharge: no Medical Emergencies . Who to Call and When: Medical Emergencies: If at any time you feel your situation is an emergency, please call [phone] immediately. . Non-Emergent Contact Non-Emergency issues call your: Primary Care Provider . . "Provider Documentation" section prepared by Arin Guido. . VTE Core Measure Inpt VTE Proph given/why not?: Treatment not indicated
[2017-10-04 08:00] VITALS: BP 113/75; PULSE 82; TEMP 36.8; O2SAT 98
[2017-10-04] MEDS: DOCUSATE SODIUM 100 MG CAP PO SCH (08:36)
[2017-10-04 12:55] VITALS: BP_DIAS 75; PULSE 82; TEMP 36.8
== END 2017-10-04 12:55 | disposition home or self-care (01) | DRG 775 ==
LOC: C.OPB 03:43 → C.LD 03:43 → C.OPB 04:32 → C.OBG 20:07
PROVIDERS: ADMIT Obstetrics & Gynecology; ATTEND Obstetrics & Gynecology
PROC: 10E0XZZ Delivery of Products of Conception, External Approach (ICD-10-PCS; principal; 2017-10-02)
PROC: 3E033VJ Introduction of Other Hormone into Peripheral Vein, Percutaneous Approach (ICD-10-PCS; 2017-10-02)
DX: O48.0 Post-term pregnancy (principal); Z68.43 Body mass index [BMI] 50.0-59.9, adult; O99.214 Obesity complicating childbirth; E66.9 Obesity, unspecified; O42.02 Full-term premature rupture of membranes, onset of labor within 24 hours of rupture; O69.81X0 Labor and delivery complicated by cord around neck, without compression, not applicable or unspecified; Z3A.41 41 weeks gestation of pregnancy; Z37.0 Single live birth

== ENCOUNTER 2020-12-02 05:42 | Inpatient (IN) ==
[2020-12-02] MEDS ORDERED: OXYTOCIN 30 UNITS/500 ML BAG IV PRN ×2 (06:03→09:30)
[2020-12-02] MEDS ORDERED: PENICILLIN G POTASSIUM 6 MU in DEXTROSE 5% 250 ML IV STA (06:03)
[2020-12-02] MEDS: LACTATED RINGER'S 1,000 ML IV PRN ×2 (06:18→17:29)
[2020-12-02 06:29] LABS: Hematocrit (blood only) 37.3 % (37-47); Hemoglobin 13.1 g/dL (12.0-16.0); Mean Corpuscular Hemoglobin 26.8 pg (25-34); Mean Corpuscular Hgb Conc 35.1 g/dL (32-36); Mean Corpuscular Volume 76.3 fL (80-100); Mean Platelet Volume 10.6 fL (7.4-10.4); Platelet Count 221 K/uL (130-400); RDW Coefficient of Variation 15.7 % (11.5-14.5); RDW Standard Deviation 43.7 fL (36.4-46.3); Red Blood Count 4.89 M/uL (4.2-5.4); White Blood Count 8.15 K/uL (4.8-10.8)
--- NOTE | 2020-12-02 07:02 | History & Physical Report ---
Date of Service December 02, 2020 Assessment & Plan (1) Obesity affecting , antepartum: Admission for prom. Penicillin started for group B strep I discussed augmentation with the patient is not yamileth at this time she wishes to walk for short period of time first discussed contractions did not increase sooner would strongly recommend augmentation. I discussed Pitocin Position is confirmed is vertex on ultrasound Admission and Anticipated Discharge Date Admission Date: December 02, 2020 History of Present Illness Primary Care Provider: Alpa Salinas, DO Spontaneous rupture of membranes at 4 AM today with a large gush and continued leaking the patient is not currently yamileth and is now 3 hours later her has been complicated by suspicion for a larger fetus she had induction planned December 08 for this reason and she has a past history of a perirectal abscess although she has been cleared for vaginal delivery Patient states her fetus is moving no bleeding Allergies Allergy/AdvReac Type Severity Reaction Status Date / Time No Known Allergies Allergy Verified 11/30/20 08:28 Home Medications Medication Instructions Recorded Confirmed Type prenat.vits,clint,vel-shrk-leycz 1 tab PO DAILY 04/29/20 12/02/20 History Patient History Medical History (Updated 12/02/20 @ 00:04 by Kathy Mendoza) Anal fistula Crohns disease REASON FOR PROCEDURE TO DIAGNOSE History of chicken pox Hx of thyroid nodule TOO SMALL FOR BIOPSY> JUST WATCHING Perirectal abscess TARAS PLACEMENT IN DECEMBER 2019 Pneumonia HX with 41 completed weeks gestation Surgical History (Updated 04/29/20 @ 11:16 by Shirin Serrano) History of incision and drainage FOR PERIRECTAL ABCESS History of tooth extraction WISDOM TEETH S/P anal fissurectomy Family History (Updated 04/29/20 @ 11:17 by Shirin Serrano) Grandmother (Maternal) Breast cancer Diabetes Denies family history of Ovarian cancer Colorectal cancer Social History (Updated 04/29/20 @ 11:03 by Shirin Serrano) Smoking Status: Never smoker Second Hand Exposure: No; Hx Alcohol Use: No Hx Substance Use: No Preferred Language: Indonesian Communication Ability: Effective Launch Leader Required: No Beliefs That Will Affect Care: None marital status: marital status details: Zion David (42) [phone] Current Living Situation: Spouse and Family Current Living Situation Comment: lives with spouse, 2 children, dog current occupational status: employed 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
--- NOTE | 2020-12-02 10:09 | Labor Progress Brief Note ---
Date of Service December 02, 2020 Subjective Patient has been ambulating, comfortable, not yamileth painfully. Leakage persists, clear. Assessment & Plan (1) PROM (premature rupture of membranes): Discussed ACOG recommendations regarding PROM, and move to augment labor without delay. Pitocin to be ordered and started as soon as available. Patient to receive second dose of GBS abx when indicated and after that, will place EFM and IUPC per RN request; can do sooner if external monitoring not sufficient, but until then make efforts to use hand-holding to achieve adequate tracings, as lengthy labor and GBS positivity are factors increasing this patient's risk of infection to mother and baby already. Patient agreeable to plan. Also discussed epidural, which she does want, and had difficulty being placed in her prior labor due to obesity. Likely to request epidural early to ensure she can be still for placement to facilitate successful catheter location. Admission and Anticipated Discharge Date Admission Date: December 02, 2020 Physical Exam Physical Exam: Monitoring of fetus has been difficult due to obesity per RN, but when monitored has been reassuring. RN requests internal monitor be used when feasible, along with IUPC. Patient cervical exam at this time per this examiner. RN exam on admission was 3-4cm but I cannot agree at this time. The exam is certainly difficult due to obesity. I can feel the vertex and do confirm that position. Results & Data ([facility]) Vital Signs (Past 12 Hours) Vital Signs Temp Pulse Resp BP 12/02/20 07:41 97.9 F 98 H 20 120/62 12/02/20 06:04 98.4 F 18 12/02/20 05:49 107 H 122/77 Coding Level of Care Code None Diagnoses PROM (premature rupture of membranes) O42.90
[2020-12-02] MEDS: PENICILLIN G POTASSIUM 3 MU in DEXTROSE 5% 100 ML IV PRN ×4 (10:17→22:57)
--- NOTE | 2020-12-02 11:37 | Labor Progress Brief Note ---
Date of Service December 02, 2020 Subjective RN requested internal monitors be placed due to difficulty with tracings. Assessment & Plan Admission and Anticipated Discharge Date Admission Date: December 02, 2020 Physical Exam Physical Exam: IUPC and EFM placed without difficulty. Nurse in training, Katia, present to learn procedure. Equipment therefore demonstrated in detail, and patient / FOB had opportunity to see and hear these explanations as well. Initial FHT Cat 1 and [place] shows minimal contraction frequency and strength. Pit now to begin, started at 1 mu/min. Results & Data ([facility]) Vital Signs (Past 12 Hours) Vital Signs Temp Pulse Resp BP 12/02/20 11:30 93 H 119/60 12/02/20 11:00 97.9 F 20 12/02/20 10:59 88 110/62 12/02/20 07:41 97.9 F 98 H 20 120/62 12/02/20 06:04 98.4 F 18 12/02/20 05:49 107 H 122/77 Coding Level of Care Code None
[2020-12-02] MEDS ORDERED: ePHEDrine sulfate 50 MG/ML AMP ONE (16:53)
[2020-12-02] MEDS ORDERED: SODIUM CHLORIDE 0.9% INJ 10 ML VIAL ONE (16:53)
[2020-12-02] MEDS ORDERED: BUPIVACAINE 0.25% 30 ML VIAL ONE (16:54)
[2020-12-02] MEDS ORDERED: fentaNYL 2MCG/ML ROPIVACAINE 1.25MG/ML 100 ML BAG EPI ONE (16:54)
[2020-12-02] MEDS ORDERED: fentaNYL citrate 100 MCG/2 ML VIAL ONE (16:54)
[2020-12-02] MEDS ORDERED: LIDOCAINE HCL 1% 20 ML VIAL ONE (17:20)
[2020-12-02] MEDS ORDERED: diphenhydrAMINE 50 MG/ML VIAL IV PRN (18:54)
[2020-12-02] MEDS ORDERED: PROMETHAZINE HCL 6.25 MG in SODIUM CHLORIDE 0.9% 50 ML IV PRN (18:54)
[2020-12-02] MEDS ORDERED: NALOXONE HCL 1 MG in SODIUM CHLORIDE 0.9% 1000ML 1,000 ML IV PRN (18:54)
[2020-12-02] MEDS ORDERED: fentaNYL 2MCG/ML ROPIVACAINE 1.25MG/ML 100 ML BAG EPI PRN (18:54)
[2020-12-02] MEDS ORDERED: NALOXONE HCL 0.4 MG/1 ML VIAL/CARP IV PRN (18:54)
[2020-12-02] MEDS ORDERED: ePHEDrine sulfate 50 MG/ML AMP IV PRN (18:54)
[2020-12-02] MEDS ORDERED: ONDANSETRON INJ 2 MG/ML 2 ML VIAL IV PRN (18:54)
--- NOTE | 2020-12-03 01:12 | Delivery Summary ---
Vaginal Delivery Summary Date of Service December 03, 2020 Vaginal Delivery Summary DIAGNOSES: 1. Pacheco intrauterine at 38w4d gestation. 2. PROM, IOL. 3. Group B Streptococcus Pos (adequately treated). PROCEDURE: Spontaneous vaginal delivery without laceration. SURGEON: Rika Patel MD. PUBLIC TRANSIT BUS DRIVER: None. ESTIMATED BLOOD LOSS: 250 mL. COMPLICATIONS: None. PLACENTA: Spontaneous and intact with a 3-vessel cord. DISPOSITION: Stable to labor and delivery. DESCRIPTION: The patient pushed for nearly 3 hours with a fetus in LOP position. She was counseled on operative delivery and asked to proceed with attempt of vacuum delivery. She was prepped wth betadine and bladder emptied with a red rubber catheter. A Kiwi was attached to the scalp at the flexion point and suction was activated to the "green zone" on the kiwi. Through the next contraction with active pushing efforts, gentle steering traction was applied. The head of the fetus came to , then the vacuum detached and the head retracted back to +2 station. The vacuum was re-applied, and with the next pushing effort, the head was guided fully to delivery. The vacuum was removed. There was no nuchal cord. The shoulders and body delivered without any difficulty, and the was placed on the maternal abdomen. It was vigorous and moving all extremities, and making respiratory efforts. The cord was doubly clamped by the MD and then cut by the FOB. The placenta delivered spontaneously and was noted to be intact and with a 3VC. The cervix, vagina and perineum were examined and were found to be without defect requiring repair; there was a first degree perineal but this was hemostatic, and it sits in good approximation without suture, so was left open to heal spontaneously, with patient advised of same. The fundus was firm and lochia minimal immediately after delivery. [facility] Vaginal Delivery Charge Vaginal Delivery Codes: 66872 global code for the antepartum, delivery, and post-
--- NOTE | 2020-12-03 01:17 | Anesthesia Procedure Note ---
Date of Service December 03, 2020 Anesthesia Post Epidural Note Vital Signs Vital Signs: Temp Pulse Resp BP Pulse Ox 37.1 C 75 18 132/69 100 12/03/20 00:58 12/03/20 01:14 12/03/20 00:58 12/03/20 01:14 12/03/20 00:44 Pain Intensity Lower Abdomen: Pain Intensity: 0 Notes Mental Status: alert / awake / arousable Nausea / Vomiting: adequately controlled Pain: adequately controlled Airway Patency, RR, SpO2: stable & adequate BP & HR: stable & adequate Hydration State: stable & adequate Neuraxial Anesthesia: was administered and sensory block is resolving Anesthetic Complications: no major complications apparent and Pt Satisfied with anesthetic care Epidural: Removed without complications and With tip intact
[2020-12-03] MEDS ORDERED: BENZOCAINE 20% AER SPR 82.5 GM CAN EXT PRN (02:21)
[2020-12-03] MEDS ORDERED: HYDROCORTISONE ACETATE 25 MG SUPP PR PRN (02:21)
[2020-12-03] MEDS ORDERED: DIPHTHERIA/TETANUS/PERTUSSIS 0.5 ML SYR/VIAL IM ONE (02:21)
[2020-12-03] MEDS ORDERED: SUPERCREAM 0.870% 15 GM JAR EXT PRN (02:21)
[2020-12-03] MEDS ORDERED: ACETAMINOPHEN 325 MG TAB PO PRN (02:21)
[2020-12-03] MEDS ORDERED: oxyCODONE/ACETAMINOPHEN 5mg/325mg TAB PO PRN (02:21)
[2020-12-03] MEDS: IBUPROFEN 600 MG TAB PO PRN ×3 (02:31→20:12)
[2020-12-03] MEDS: PRENATAL VITAMIN 1 TAB PO SCH (08:54)
[2020-12-03] MEDS: DOCUSATE SODIUM 100 MG CAP PO SCH ×2 (08:54→20:12)
[2020-12-04 06:30] LABS: Hematocrit (blood only) 35.2 % (37-47); Hemoglobin 11.5 g/dL (12.0-16.0); Mean Corpuscular Hemoglobin 25.8 pg (25-34); Mean Corpuscular Hgb Conc 32.7 g/dL (32-36); Mean Corpuscular Volume 78.9 fL (80-100); Mean Platelet Volume 11.1 fL (7.4-10.4); Platelet Count 195 K/uL (130-400); RDW Coefficient of Variation 16.1 % (11.5-14.5); RDW Standard Deviation 45.7 fL (36.4-46.3); Red Blood Count 4.46 M/uL (4.2-5.4); White Blood Count 10.34 K/uL (4.8-10.8)
--- NOTE | 2020-12-04 07:37 | Obstetrical Progress Note ---
Date of Service December 04, 2020 Assessment & Plan (1) state: 35 yo PP1 from [facility], doing well -Meeting all pp milestones -O+/rubella immune/ -f/u 6 weeks for appt, stable for d/c home today Subjective Ambulation: ambulating normally Voiding: no voiding problems Passing Gas:: Yes Diet Tolerance:: regular diet Lochia:: Small Feeding Type:: breast feeding Pain well managed with medication Review of Systems Denies fevers, chills, n/v, SMALLS, CP, SOB Physical Exam Constitutional WD/WN, vitals as above no acute distress Respiratory normal respiratory effort, lungs clear to auscultation Cardiovascular RRR, no murmur, no edema Gastrointestinal (Abdomen) Percussion/Palpation: abdomen soft; abdomen nontender fundus firm at umbilicus and NT Musculoskeletal BLE symmetric, nonerythematous, nontender Results & Data ([place]) Vital Signs (Past 12 Hours) Vital Signs Temp Pulse Pulse Resp BP Pulse Ox 12/03/20 23:26 98.4 F 89 18 105/69 96 12/03/20 20:05 98.2 F 85 18 99/64 L 97
[2020-12-04] MEDS: IBUPROFEN 600 MG TAB PO PRN ×3 (08:09→20:14)
[2020-12-04] MEDS: PRENATAL VITAMIN 1 TAB PO SCH (08:09)
[2020-12-04] MEDS: DOCUSATE SODIUM 100 MG CAP PO SCH ×2 (08:09→20:14)
[2020-12-05 06:39] LABS: Hematocrit (blood only) 35.3 % (37-47); Hemoglobin 11.5 g/dL (12.0-16.0)
--- NOTE | 2020-12-05 08:12 | Obstetrical Progress Note ---
Date of Service December 05, 2020 Assessment & Plan (1) state: satisfactory course D/C to home F/U in 6 weeks. Subjective Ambulation: ambulating normally Voiding: no voiding problems Passing Gas:: Yes Diet Tolerance:: regular diet Lochia:: Small Feeding Type:: breast feeding feels well, no concerns this am. Review of Systems All systems reviewed & are unremarkable except as noted in HPI & below Physical Exam Constitutional WD/WN, vitals as above Psychiatric A+Ox3, euthymic affect Genitourinary OB Exam Abdomen: + fundal height Fundus: + firm and + relation to umbilicus (2 below U) Results & Data ([facility]) Vital Signs (Past 12 Hours) Vital Signs Temp Pulse Resp BP Pulse Ox 12/04/20 22:50 98.2 F 84 16 106/70 97
[2020-12-05] MEDS: DOCUSATE SODIUM 100 MG CAP PO SCH (08:55)
[2020-12-05] MEDS: PRENATAL VITAMIN 1 TAB PO SCH (08:55)
[2020-12-05] MEDS: IBUPROFEN 600 MG TAB PO PRN (19:16)
--- NOTE | 2020-12-07 08:20 | Discharge Summary ---
Date of Service December 07, 2020 Discharge Data Consultations 12/02/20 06:03 Consult Anesthesiology Stat Hospital Course (1) Vacuum-assisted vaginal delivery: Patient admitted for PROM, underwent IOL, and pushed for 3 hours without being able to deliver the . Excellent descent was noted with maternal emesis, and the patient is multiparous; plenty of room for delivery was felt to be present, but voluntary pushing efforts were mostly ineffective. Ultimately required vacuum-assisted extraction due to maternal exhaustion. Mom and baby had an uneventful course and were discharged home on PPD#2. Coding Level of Care Code None Diagnoses Vacuum-assisted vaginal delivery Z37.9
== END 2020-12-05 19:15 | disposition home or self-care (01) | DRG 807 ==
LOC: OPB 05:42 → 4S1 05:45 → 4S2 12-03 04:19

== ENCOUNTER 2023-12-15 04:34 | Inpatient (IN) ==
[2023-12-15] MEDS ORDERED: LACTATED RINGER'S 1,000 ML IV PRN (04:55)
[2023-12-15] MEDS ORDERED: LIDOCAINE 1% LOCAL 20 ML VIAL INFIL PRN (04:55)
[2023-12-15] MEDS: OXYTOCIN 30 UNITS/NSS 30 UNITS/500 ML BAG IV PRN (05:12)
[2023-12-15] MEDS ORDERED: HYDROCORTISONE ACETATE 25 MG SUPP PR PRN (05:18)
[2023-12-15] MEDS ORDERED: OXYTOCIN 30 UNITS/NSS 30 UNITS/500 ML BAG IV PRN (05:18)
[2023-12-15] MEDS ORDERED: ACETAMINOPHEN 325 MG TAB PO PRN (05:18)
[2023-12-15] MEDS ORDERED: bisacodyL 10 MG SUPP PR PRN (05:18)
[2023-12-15] MEDS ORDERED: oxyCODONE/ACETAMINOPHEN 5mg/325mg TAB PO PRN (05:18)
[2023-12-15 05:54] LABS: Hematocrit (blood only) 37.8 % (37.0-47.0); Hemoglobin 12.5 g/dl (12.0-16.0); Mean Corpuscular Hgb Conc 33.1 g/dL (32.0-36.0); Mean Corpuscular Volume 75.4 fL (80.0-100.0); Mean Platelet Volume 11.7 fL (9.4-12.4); Platelet Count 194 K/uL (130-400); RDW Coefficient of Variation 16.2 % (11.5-14.5); RDW Standard Deviation 43.3 fL (36.4-46.3); Red Blood Count 5.01 M/uL (4.20-5.40); White Blood Count 10.81 K/ul (4.8-10.8)
[2023-12-15] MEDS: OXYTOCIN 10 UNITS/ML VIAL ONE (06:01)
[2023-12-15] MEDS: OXYTOCIN 10 UNITS/ML 10ML VIAL IM ONE (06:02)
[2023-12-15] MEDS: IBUPROFEN 600 MG TAB PO PRN (06:03)
[2023-12-15] MEDS: DIPHTHER/TETAN/PERTUS Vaccine (Tdap, Adol/Adult) 0.5mL IM ONE (06:15)
--- NOTE | 2023-12-15 06:49 | Delivery Summary ---
Vaginal Delivery Summary Date of Service December 15, 2023 Vaginal Delivery Summary Patient is a 38-year-old 4 para 3-0-0-3 female EDC 12/14/2023 who presented in active labor. Her contractions started approximately 3 hours prior to arrival in labor and delivery. She was 8 cm on admission and membranes ruptured for thin meconium shortly after. She progressed rapidly to full dilation and pushed effectively over intact perineum. After the head was delivered, there was a tight nuchal cord x 2. The cord was clamped and cut prior to delivering the rest the . She was then placed on the mother's abdomen for further attention and drying. She was slow to respond and therefore she was taken to the baby bed for further stimulation and warming. At this time she was now crying and vigorous and moving all 4 limbs. After cord blood was obtained, the placenta was expressed intact with a three-vessel cord. bleeding was controlled with fundal massage and IM Pitocin. She had a superficial abrasion on the fourchette which was not bleeding and therefore no t repaired. QBL was 50 cc. Mother and were doing well after delivery[place] [facility] [place] Delivery Type Details: [facility]
[2023-12-15] MEDS ORDERED: PENICILLIN GK 3 MU in DEXTROSE 5% 100 ML IV PRN (07:55)
[2023-12-15] MEDS: BENZOCAINE 20% SPRY 85 APPLN/85 GM CAN EXT PRN (09:09)
[2023-12-15] MEDS: DOCUSATE SODIUM 100 MG CAP PO SCH (09:11)
[2023-12-15] MEDS: PRENATAL VITAMIN 1 TAB PO SCH (09:12)
[2023-12-15] MEDS: PENICILLIN GK 6 MU in DEXTROSE 5% 250 ML IV STA (19:12)
[2023-12-16 06:39] LABS: Hematocrit (blood only) 34.5 % (37.0-47.0); Hemoglobin 11.4 g/dl (12.0-16.0); Mean Corpuscular Hemoglobin 25.1 pg (25.0-34.0); Mean Platelet Volume 12.6 fL (9.4-12.4); Platelet Count 204 K/uL (130-400); RDW Coefficient of Variation 16.7 % (11.5-14.5); RDW Standard Deviation 44.6 fL (36.4-46.3); Red Blood Count 4.54 M/uL (4.20-5.40); White Blood Count 10.65 K/ul (4.8-10.8)
--- NOTE | 2023-12-16 07:07 | Obstetrical Progress Note ---
Date of Service <Gurwinder Bedolla DO - Last Filed: 12/16/23 07:07> December 16, 2023 Assessment & Plan <Gurwinder Bedolla DO - Last Filed: 12/16/23 07:07> (1) Encounter for assessment: Plan 38 y/o PPD#1: Eating well, voiding well, ambulating well Vitals reviewed, WNL Pain well controlled with Motrin Routine post care - OOB, ambulation, diet progression as tolerated Will have 6 week follow up with Dr. Ruff <Vee Mullins MD, FACOG - Last Filed: 12/16/23 08:00> (1) Encounter for assessment: Subjective <Gurwinder Bedolla DO - Last Filed: 12/16/23 07:07> Ambulation: ambulating normally Voiding: no voiding problems Diet Tolerance:: regular diet Lochia:: Moderate Feeding Type:: breast feeding Pain well controlled with Motrin Review of Systems -Denies fever or chills -Denies dyspnea, chest pain, or palpitations -Denies dysuria -Denies headache or changes in vision Physical Exam <Gurwinder Bedolla DO - Last Filed: 12/16/23 07:07> General: Alert and oriented. No acute distress Cardiac: Regular rate and rhythm, no murmurs appreciated Respiratory: Lungs clear to auscultation bilaterally, No increased work of breathing Abdominal: Soft, non-tender, non-distended. Bowel sounds present. Uterus: Uterine fundus firm, palpable below umbilicus Extremities: No lower extremity edema, calves non-tender bilaterally Results & Data <Gurwinder Bedolla DO - Last Filed: 12/16/23 07:07> Vital Signs (Past 12 Hours) Vital Signs Temp Pulse Resp BP Pulse Ox O2 Del Method 12/16/23 04:10 36.6 C 71 18 107/67 96 Room Air 12/15/23 23:00 36.6 C 84 18 99/62 L 97 Room Air 12/15/23 20:45 36.8 C 77 18 109/71 97 Room Air Supervising Physician <Vee Mullins MD, FACOG - Last Filed: 12/16/23 08:00> Co-Signing Physician Notes Resident Physician Supervision Note: I was present with Dr. Bedolla during the history and exam. I discussed the case with the resident and agree with the findings and plan as documented in the note. Any exceptions or clarifications are listed here: stable, doing well. eating, voiding, ambulating, breast feeding, rhpos, ri. abd soft obest nt ff 2 down nt, nt calves. will dc home, instructions reviewed. denies complaints. 6wk pp check. Documented By: Vee Mullins MD, FACOG Resident Activity Tracking <Gurwinder Bedolla DO - Last Filed: 12/16/23 07:07> Resident Involvement: Resident Care Provided Care Provided: OB Delivery
[2023-12-16] MEDS ORDERED: bisacodyL 5 MG TABEC PO SCH (20:00)
== END 2023-12-16 15:42 | disposition home or self-care (01) | DRG 807 ==
LOC: OPB 04:34 → 4S1 04:39 → 4E2 09:31